=== PATIENT | female | born 1990 ===

== ENCOUNTER 2021-04-27 13:23 | Emergency (ER) | payer MEDICAID ==
[2021-04-27 13:59] VITALS: BP 136/74
[2021-04-27 15:18] LABS: Bacteria,Urine 1+ /HPF (Negative); Bilirubin,Urine SM (Negative); Blood,Urine NEG (Negative); Color,Urine Amber (Yellow); Mucus,Urine 3+ /HPF
--- NOTE | 2021-04-27 15:29 | Ultrasound Report ---
ULTRASOUND PELVIS INDICATION / CLINICAL INFORMATION: pelvic pain. TECHNIQUE: Transabdominal and Transvaginal. Duplex Color Doppler used: Yes. COMPARISON: None available FINDINGS: UTERUS: The uterus measures 9.9 x 4.8 x 7.5 cm. Uterus demonstrates a normal echotexture. No detrime ntal mass identified. IUD is located within the fundal portion of the uterus. String appears to be lo cated within the cervical canal. The endometrial stripe measures 0.5 cm, within normal limits. RIGHT ADNEXA: No significant ovarian cyst or mass. Normal color Doppler blood flow. LEFT ADNEXA: No significant ovarian cyst or mass. Normal color Doppler blood flow. URINARY BLADDER: No significant abnormality. FREE FLUID: Minimal fluid in the cul-de-sac is likely physiologic. No organized collection. ADDITIONAL FINDINGS: None. IMPRESSION: IUD in satisfactory position in the endometrial cavity. No significant abnormality. Signer Name: Alfonso Schwab MD Signed: 04/27/2021 3:25 PM Workstation Name: [id number]
[2021-04-27 16:01] LABS: Ictotest,Urine Negative (Negative)
--- NOTE | 2021-04-27 16:06 | Emergency Department Report ---
ED Female HPI - General Chief complaint: Urogenital-Female Stated complaint: IUD REMOVAL Time Seen by Provider: 04/27/21 14:22 Source: patient Mode of arrival: Ambulatory Limitations: No Limitations - History of Present Illness Initial comments: This is a 30-year-old female nontoxic, well nourished in appearance, no acute signs of distress presents to the ED with c/o of misplaced IUD. Patient stated went to her PCP and was unable to find the IUD to remove it and was brought to the ED. Patient stated had some pelvic pain this morning but resolved during todays visit. Stated had pelvic exam and urine and pelvic swabs completed by her PCP today prior to arrival and stated was told is within normal limits. Patient denies any vaginal pain or swelling. Denies any vaginal discharge. Patient denies any vaginal ulcers or lesions. Patient denies any nausea, vomiting, chest pain, shortness of breathe, fever, chills, abdominal pain, headache, back pain, numbness, tingling, stiff neck. Patient denies any urinary symptoms. Patient denies any allergies or PMH. -: This morning Severity scale (0 -10): 0 Consistency: now resolved Improves with: none Worsens with: none Associated Symptoms: denies other symptoms. denies: vaginal discharge, vaginal bleeding, abdominal pain, nausea/vomiting, fever/chills, headaches, loss of appetite, dysuria, hematuria, rash, seizure, shortness of breath, syncope, weakness - Related Data Allergies Allergy/AdvReac Type Severity Reaction Status Date / Time No Known Allergies Allergy Verified 04/27/21 13:53 ED Review of Systems ROS: Stated complaint: IUD REMOVAL Other details as noted in HPI Comment: All other systems reviewed and negative Constitutional: denies: chills, fever Eyes: denies: eye pain, eye discharge, vision change ENT: denies: ear pain, throat pain Respiratory: denies: cough, shortness of breath, wheezing Cardiovascular: denies: chest pain, palpitations Endocrine: no symptoms reported Gastrointestinal: denies: abdominal pain, nausea, diarrhea Genitourinary: denies: urgency, dysuria, discharge Musculoskeletal: denies: back pain, joint swelling, arthralgia Skin: denies: rash, lesions Neurological: denies: headache, weakness, paresthesias Psychiatric: denies: anxiety, depression Hematological/Lymphatic: denies: easy bleeding, easy bruising ED Past Medical Hx - Past Medical History Previous Medical History?: No - Surgical History Past Surgical History?: No ED Physical Exam - General Limitations: No Limitations General appearance: alert, in no apparent distress - Head Head exam: Present: atraumatic, normocephalic - Eye Eye exam: Present: normal appearance - Neck Neck exam: Present: normal inspection, full ROM. Absent: lymphadenopathy - Respiratory Respiratory exam: Absent: respiratory distress - Cardiovascular Cardiovascular Exam: Present: regular rate - GI/Abdominal GI/Abdominal exam: Present: soft, normal bowel sounds. Absent: distended, tenderness, guarding, rebound, rigid, diminished bowel sounds - Extremities Exam Extremities exam: Present: normal inspection, full ROM - Back Exam Back exam: Present: normal inspection, full ROM. Absent: tenderness, CVA tenderness (R), CVA tenderness (L), muscle spasm, paraspinal tenderness, vertebral tenderness, rash noted - Neurological Exam Neurological exam: Present: alert, oriented X3, normal gait - Psychiatric Psychiatric exam: Present: normal affect, normal mood - Skin Skin exam: Present: warm, dry, intact, normal color. Absent: rash ED Course Vital Signs 04/27/21 13:53 Temperature 98 F Pulse Rate 80 Respiratory 16 Rate Blood Pressure 136/74 [Left] O2 Sat by Pulse 96 Oximetry - Reevaluation(s) Reevaluation #1: 04/27/21 16:05 Patient is speaking in full sentences with no signs of distress noted. ED Medical Decision Making - Lab Data Lab Results 04/27/21 Range/Units Unknown Urine Color [place] (Yellow) Urine Turbidity Clear (Clear) Urine pH 6.0 (5.0-7.0) Ur Specific [place] 1.042 H (1.003-1.030) Urine Protein 100 mg/dl (Negative) mg/dL Urine Glucose (UA) Neg (Negative) mg/dL Urine Ketones Tr (Negative) mg/dL Urine Blood Neg (Negative) Urine Nitrite Neg (Negative) Urine Bilirubin Sm (Negative) Urine Ictotest Negative (Negative) Urine Urobilinogen 4.0 (<2.0) mg/dL Ur Leukocyte Esterase Neg (Negative) Urine WBC (Auto) 2.0 (0.0-6.0) /HPF Urine RBC (Auto) 4.0 (0.0-6.0) /HPF U Epithel Cells (Auto) 1.0 (0-13.0) /HPF Urine Bacteria (Auto) 1+ (Negative) /HPF Urine Mucus 3+ /HPF - Radiology Data [address] [address] Ultrasound Report Signed Patient: ROBYN LYON MR#: [id number] : 1990 Acct:[id number] Age/Sex: 30 / F ADM Date: 04/27/21 Loc: ED Attending Dr: Ordering Physician: KALEN BOYCE NP Date of Service: 04/27/21 Procedure(s): US pelvis duplex doppler LTD Accession Number(s): [id number] cc: KALEN BOYCE NP ULTRASOUND PELVIS INDICATION / CLINICAL INFORMATION: pelvic pain. TECHNIQUE: Transabdominal and Transvaginal. Duplex Color Doppler used: Yes. COMPARISON: None available FINDINGS: UTERUS: The uterus measures 9.9 x 4.8 x 7.5 cm. Uterus demonstrates a normal echotexture. No detrimental mass identified. IUD is located within the fundal portion of the uterus. String appears to be located within the cervical canal. The endometrial stripe measures 0.5 cm, within normal limits. RIGHT ADNEXA: No significant ovarian cyst or mass. Normal color Doppler blood flow. LEFT ADNEXA: No significant ovarian cyst or mass. Normal color Doppler blood flow. URINARY BLADDER: No significant abnormality. FREE FLUID: Minimal fluid in the cul-de-sac is likely physiologic. No organized collection. ADDITIONAL FINDINGS: None. IMPRESSION: IUD in satisfactory position in the endometrial cavity. No significant abnormality. Signer Name: Alecia Schwab MD Signed: 04/27/2021 3:25 PM Workstation Name: [id number] Transcribed By: FEDE Dictated By: ALECIA SCHWAB MD Electronically Authenticated By: ALECIA SCHWAB MD Signed Date/Time: 04/27/21 1525 DD/ 152 TD/TT: [address] [address] Ultrasound Report Signed Patient: ROBYN LYON MR#: [id number] : 1990 Acct:[id number] Age/Sex: 30 / F ADM Date: 04/27/21 Loc: ED Attending Dr: Ordering Physician: KALEN BOYCE NP Date of Service: 04/27/21 Procedure(s): US transvaginal Accession Number(s): [id number] cc: KALEN BOYCE NP ULTRASOUND PELVIS INDICATION / CLINICAL INFORMATION: pelvic pain. TECHNIQUE: Transabdominal and Transvaginal. Duplex Color Doppler used: Yes. COMPARISON: None available FINDINGS: UTERUS: The uterus measures 9.9 x 4.8 x 7.5 cm. Uterus demonstrates a normal echotexture. No detrimental mass identified. IUD is located within the fundal portion of the uterus. String appears to be located within the cervical canal. The endometrial stripe measures 0.5 cm, within normal limits. RIGHT ADNEXA: No significant ovarian cyst or mass. Normal color Doppler blood flow. LEFT ADNEXA: No significant ovarian cyst or mass. Normal color Doppler blood flow. URINARY BLADDER: No significant abnormality. FREE FLUID: Minimal fluid in the cul-de-sac is likely physiologic. No organized collection. ADDITIONAL FINDINGS: None. IMPRESSION: IUD in satisfactory position in the endometrial cavity. No significant abnormality. Signer Name: Alecia Schwab MD Signed: 04/27/2021 3:25 PM Workstation Name: [id number] Transcribed By: JS Dictated By: ALECIA SCHWAB MD Electronically Authenticated By: ALECIA SCHWAB MD Signed Date/Time: 04/27/21 152 DD/ 152 TD/TT: - Medical Decision Making 30-year-old female that presents with possible IUD displacement. Patient is stable and was examined by me. Ultrasound Doppler and transvaginal has been obtained and patient is notified of the results with no questions noted by the patient. Patient is also notified of the urine results with no questions noted by the patient. Patient was instructed to follow-up with a primary care doctor in 3-5 days or if symptoms worsen and continue return to emergency room as soon as possible. At time of discharge, the patient does not seem toxic or ill in appearance. No acute signs of distress noted. Patient agrees to discharge treatment plan of care. No further questions noted by the patient. Critical care attestation.: If time is entered above; I have spent that time in minutes in the direct care of this critically ill patient, excluding procedure time. ED Disposition Clinical Impression: IUD check up Disposition: 01 HOME / SELF CARE / HOMELESS Is pt being admited?: No Does the pt Need Aspirin: No Condition: Stable Additional Instructions: Follow-up with a [facility] doctor in 3-5 days or if symptoms worsen and continue return to emergency room as soon as possible. Referrals: [facility]IMARY [facility] [Referring] - 3-5 Days [facility] [Provider Group] - 3-5 Days [facility] [Provider Group] - 3-5 Days Forms: Work/School Release Form(ED) Time of Disposition: 16:08
[2021-04-27 16:24] LABS: HCG Qualitative,Urine Negative (Negative)
== END 2021-04-27 18:13 | disposition home or self-care (01) ==
LOC: ED 13:23
DX: Z30.431 Encounter for routine checking of intrauterine contraceptive device (principal)
CPT/HCPCS: 76830; 81001; 81025; 93976; 99283